=== PATIENT | male | born 1965 | race Caucasian/White ===

== ENCOUNTER → 2019-01-11 | Emergency (ER) | payer OTHER ==
[~2019-01-11] VITALS: Ht 177.8 cm; Wt 107.0 kg
[~2019-01-11] MED LIST: AMLODIPINE BESY10 MG; BISOPROLOL FUMA10 MG; CATAPRES0.1 MG; LIPITOR40 MG; LOSARTAN-HCTZ1 EAC1; TOPROL XL50 M1
== END | disposition home or self-care (01) ==
LOC: ER 17:28
DX: S91.322A Laceration with foreign body, left foot, initial encounter (principal); W45.8XXA Other foreign body or object entering through skin, initial encounter; Y93.89 Activity, other specified; Y92.59 Other trade areas as the place of occurrence of the external cause; Y99.8 Other external cause status